=== PATIENT | male | born 1960 | race Caucasian/White ===

== ENCOUNTER 2019-01-28 10:21 | Day surgery (SDC) | payer OTHER ==
[~2019-01-28] VITALS: Ht 175.3 cm; Wt 73.0 kg
[~2019-01-28 10:21] MED LIST: ATEN-51 PO; ATENOLOL
[2019-01-28 11:22] VITALS: Ht 175.3 cm; Wt 73.0 kg
[2019-01-28 13:43] VITALS: PULSE 77
[2019-01-28 16:40] VITALS: BP 100/65; RESP 15
== END 2019-01-28 18:00 | disposition home or self-care (01) ==
LOC: GIL 10:21
PROVIDERS: ATTEND Internal Medicine Gastroenterology
DX: Z12.11 Encounter for screening for malignant neoplasm of colon (principal); D12.5 Benign neoplasm of sigmoid colon; D12.8 Benign neoplasm of rectum; K64.4 Residual hemorrhoidal skin tags; D12.2 Benign neoplasm of ascending colon; K29.50 Unspecified chronic gastritis without bleeding; K20.9 Esophagitis, unspecified
CPT/HCPCS: 43239; 45380; 45385; 88305; 88312; Z7610

== ENCOUNTER 2019-02-17 05:26 | Inpatient (IN) | payer OTHER ==
[2019-02-17] VITALS (42 sets, daily range): BP systolic 93–215; BP diastolic 71–141; PULSE 78–119; RESP 11–30; Ht 180.3 cm; Wt 76.0 kg
[~2019-02-17] VITALS: Ht 180.3 cm; Wt 76.0 kg
[2019-02-17] MEDS: SOD CHLORIDE 0.9% 1,000 ML IV SCH ×4 (06:09→20:26)
[2019-02-17] MEDS ORDERED: CEFAZOLIN 2 GM/50 ML (PMX) 50 ML IVPB SCH (07:00)
[2019-02-17] MEDS ORDERED: POLYMYXIN/BACITRACIN 1L IRRIG ONE (07:01)
[2019-02-17] MEDS ORDERED: MEPERIDINE 25 MG INJ IV PRN (07:30)
[2019-02-17] MEDS ORDERED: ONDANSETRON 4 MG INJ IV PRN ×3 (07:30→20:00)
[2019-02-17] MEDS ORDERED: FENTAnyl 50 MCG/ML VIAL IV PRN ×5 (07:30→10:00)
[2019-02-17] MEDS ORDERED: HYDROmorphONE 1 MG/5 ML IV SYRINGE IV PRN ×3 (07:30)
[2019-02-17] MEDS ORDERED: METOCLOPRAMIDE 10 MG INJ IV PRN ×2 (07:30→10:00)
[2019-02-17] MEDS ORDERED: DIPHENHYDRAMINE 50 MG INJ IV PRN (07:30)
[2019-02-17] MEDS ORDERED: DESFLURANE 15 MIN ONE (07:30)
[2019-02-17] MEDS ORDERED: ALBUTEROL 0.083% (NEB) 2.5 MG/3 ML AMP HHN PRN ×2 (07:30→10:00)
[2019-02-17] MEDS ORDERED: ROPIVACAINE 0.5 % 30 ML VIAL ONE (07:32)
[2019-02-17] MEDS ORDERED: FENTAnyl 50 MCG/ML VIAL ONE (07:32)
[2019-02-17] MEDS ORDERED: ROCURONIUM 50 MG INJ ONE (08:18)
[2019-02-17] MEDS ORDERED: SUCCINYLCHOLINE CHLORIDE 100 MG/5 ML SYG IV ONE (08:18)
[2019-02-17] MEDS ORDERED: LIDOCAINE 100 MG SYRINGE ONE (08:18)
[2019-02-17] MEDS ORDERED: SUGAMMADEX SODIUM 200 MG/2 ML VIAL IV ONE ×2 (08:18→08:37)
[2019-02-17] MEDS ORDERED: PROPOFOL 20 ML ONE (08:18)
[2019-02-17] MEDS ORDERED: CEFAZOLIN 1 GM INJ ONE (08:18)
[2019-02-17] MEDS ORDERED: LABETALOL HCL 20MG INJ ONE ×2 (08:37→09:54)
[2019-02-17] MEDS ORDERED: hydrALAzine 20 MG INJ ONE (08:48)
[2019-02-17] MEDS ORDERED: PROPOFOL 100 ML ONE (09:32)
[2019-02-17] MEDS: PROPOFOL 100 ML IV SCH ×2 (09:34→23:50)
[2019-02-17] MEDS: LABETALOL HCL 20MG INJ IV PRN ×3 (09:58→11:58)
[2019-02-17] MEDS ORDERED: HYDROmorphONE 0.5 MG/0.5 ML SYG IV PRN ×2 (10:00)
[2019-02-17] MEDS: hydrALAzine 20 MG INJ IV PRN ×2 (10:40→11:11)
[2019-02-17] MEDS ORDERED: hydrALAzine 20 MG INJ IV PRN (12:30)
[2019-02-17] MEDS: morphine 2 MG INJ IV PRN (15:26)
[2019-02-17] MEDS ORDERED: LORAZEPAM 2 MG INJ IV PRN (20:00)
[2019-02-17] MEDS ORDERED: ACETAMINOPHEN 325 MG TAB PO PRN (20:00)
[2019-02-17] MEDS ORDERED: HYDROCODONE/APAP (5/325) TAB PO PRN (20:00)
[2019-02-17] MEDS ORDERED: LORAZEPAM 0.5 MG TAB PO PRN (21:30)
[2019-02-18] VITALS (23 sets, daily range): BP systolic 116–177; BP diastolic 59–107; PULSE 73–107; RESP 11–20
[2019-02-18] MEDS: NICOTINE (14 MG/24 HR) PATCH TRANSDERM SCH ×2 (00:05→08:56)
[2019-02-18] MEDS: morphine 2 MG INJ IV PRN ×2 (00:06→09:00)
[2019-02-18] MEDS: SOD CHLORIDE 0.9% 1,000 ML IV SCH (06:31)
== END 2019-02-18 18:10 | disposition home or self-care (01) | DRG 988 ==
LOC: SDS 05:26 → ICU 08:58 → SDS 08:58 → OBSVTOIN 02-18 07:26
PROVIDERS: ADMIT Surgery; ATTEND Surgery
PROC: 5A1935Z Respiratory Ventilation, Less than 24 Consecutive Hours (ICD-10-PCS; 2019-02-17)
PROC: 0YU50JZ Supplement Right Inguinal Region with Synthetic Substitute, Open Approach (ICD-10-PCS; principal; 2019-02-17 07:30)
DX: J95.821 Acute postprocedural respiratory failure (principal); K40.30 Unilateral inguinal hernia, with obstruction, without gangrene, not specified as recurrent; I10 Essential (primary) hypertension; Y83.8 Other surgical procedures as the cause of abnormal reaction of the patient, or of later complication, without mention of misadventure at the time of the procedure; F17.210 Nicotine dependence, cigarettes, uncomplicated; E88.09 Other disorders of plasma-protein metabolism, not elsewhere classified; Y92.239 Unspecified place in hospital as the place of occurrence of the external cause
CPT/HCPCS: 36600; 70450; 71045; 80048; 82803; 85025; 87081; 88302; 94002; 97161; 99217; C1781; G0378; J0360; J0690; J1170; J2001; J2270; J2795; J3010; J7030